=== PATIENT | female | born 1955 | race Caucasian/White ===

== ENCOUNTER 2016-08-10 16:04 | Emergency (ER) | payer OTHER ==
[~2016-08-10 16:04] MED LIST: ASPIR 8181 MG PO; GLUCOPHAGE500 MG PO; IMDUR ER TAB 3030 MG PO; JANUVIA100 MG PO; LIPITOR TAB 2020 MG PO; LOPRESSOR 25 MG25 MG PO; NEURONTIN 100100 MG PO; NITROSTAT0.4 MG SL; PROTONIX40 MG PO
[2016-08-10 18:11] LABS: HEMOGLOBIN 14.9 gm/dl (12.3-15.3); RED BLOOD COUNT 5.15 M/UL (4.00-5.10); WHITE BLOOD COUNT 12.4 K/UL (4.5-11.0)
[2016-08-10 18:31] LABS: BUN/CREATININE RATIO 20 (0-10)
== END 2016-08-10 23:00 | disposition home or self-care (01) ==
LOC: ER1 16:04
PROVIDERS: Family Medicine
DX: S00.11XA Contusion of right eyelid and periocular area, initial encounter (principal); E11.65 Type 2 diabetes mellitus with hyperglycemia; J32.0 Chronic maxillary sinusitis; F17.200 Nicotine dependence, unspecified, uncomplicated; Z88.0 Allergy status to penicillin; Z79.84 Long term (current) use of oral hypoglycemic drugs; W18.2XXA Fall in (into) shower or empty bathtub, initial encounter; Y92.89 Other specified places as the place of occurrence of the external cause
CPT/HCPCS: 36415; 70450; 70486; 71020; 72125; 80053; 82550; 82553; 83874; 84484; 85025; 96374; 96375; 96376; 99284; J2270; J2405